=== PATIENT | male | born 1970 | race Caucasian/White ===

== ENCOUNTER 2018-01-24 08:52 | Emergency (ER) | payer BC ==
[~2018-01-24] VITALS: Ht 172.7 cm; Wt 86.4 kg
[2018-01-24 09:10] VITALS: BP 155/100
[2018-01-24 11:21] VITALS: PULSE 63; TEMP 98
== END 2018-01-24 10:10 | disposition home or self-care (01) ==
LOC: COL.ER 08:52
DX: S61.215A Laceration without foreign body of left ring finger without damage to nail, initial encounter (principal); W26.0XXA Contact with knife, initial encounter; Y92.009 Unspecified place in unspecified non-institutional (private) residence as the place of occurrence of the external cause